=== PATIENT | male | born 1990 | race Caucasian/White ===

== ENCOUNTER 2021-07-31 03:06 | Emergency (ER) | payer SELFPAY ==
[2021-07-31 03:58] VITALS: BP 116/75; PULSE 75; RESP 16; TEMP 36.2; O2SAT 96; BMI 25.0
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
[2021-07-31] MEDS: lidocaine 1% INJ 20 mL INJECTION (07:30)
== END 2021-07-31 07:55 | disposition home or self-care (01) ==
PROVIDERS: Emergency Provider Family Medicine
DX: S93.401A Sprain of unspecified ligament of right ankle, initial encounter (principal); S01.511A Laceration without foreign body of lip, initial encounter; V57.5XXA Driver of pick-up truck or van injured in collision with fixed or stationary object in traffic accident, initial encounter
CPT/HCPCS: 12011; 73610; 99282